=== PATIENT | male | born 1975 | race Two or more races ===

== ENCOUNTER 2017-02-04 03:10 | Emergency (ER) | payer SELFPAY ==
[2017-02-04] MEDS ORDERED: IBUPROFEN 600 MG TABLET ONE (03:38)
[2017-02-04] MEDS ORDERED: METHOCARBAMOL 750 MG TABLET ONE (03:38)
[2017-02-04] MEDS ORDERED: LIDOCAINE 5% PATCH ONE (03:39)
--- NOTE | 2017-02-04 07:59 | RAD ---
Exam: Complete right shoulder COMPARISON: None INDICATION: Right shoulder pain, no known injury. FINDINGS: Internal and external rotated AP and transscapular y views of the right shoulder were obtained. Overall normal bone mineralization. Alignment is within normal limits. Joint spaces are preserved. There is a focal ovoid lucency which projects within the soft tissue along the scapula just superior to the glenoid. Visualized right hemithorax within normal limits. IMPRESSION: Small ovoid soft tissue lucency which projects adjacent to the scapula just superior to the glenoid most compatible with a small focus of gas. This is probably of no clinical concern if patient is not having any signs and symptoms of infection. Otherwise negative right shoulder.
== END 2017-02-04 04:44 | disposition home or self-care (01) ==
LOC: ED 03:10
DX: M25.511 Pain in right shoulder (principal); M62.838 Other muscle spasm; F17.210 Nicotine dependence, cigarettes, uncomplicated